=== PATIENT | male | born 2000 | race Two or more races ===

== ENCOUNTER 2024-07-15 11:47 | Emergency (ER) | payer OTHER, SELFPAY ==
[2024-07-15 11:50] VITALS: BP 113/56; PULSE 72; RESP 16; TEMP 36.9; O2SAT 95; BMI 21.1
[2024-07-15 11:51] VITALS: BMI 22.2
--- NOTE | 2024-07-15 11:58 | EDNOTE_ITS ---
ED Medical Clearance RME/HPI General Chief complaint: Medical Clearance Stated complaint: CLEARANCE, Time Seen by Provider: 07/15/24 11:54 Arrival date/time: 07/15/24 11:47 CBC showed mild medical clearance HPI patient presents to the ER in [facility] with a [place] [employer] police officer escorting him the patient has no specific complaints the officer states he has no specific issues, other than thinking the patient is high [place] . The patient denies any pain fever chills nausea vomiting vital signs are stable. Related Information Allergies Allergy/AdvReac Type Severity Reaction Status Date / Time No Known Allergies Allergy Verified 07/15/24 11:51 Review of Systems Review of Systems Narrative Review of Systems: GEN: No fever, no chills, no weight loss EYES: No discharge, no visual changes, no pain HEENT: No ear pain, no congestion, no sore throat PULM: No shortness of breath, no cough, no congestion CV: No chest pain, no dyspnea on exertion, no palpitations GI: No nausea, no vomiting, no diarrhea, no pain, no constipation : No frequency, no urgency, no dysuria MUSC/SKEL: No joint pain, no back pain SKIN: No rash PSYCH: No hallucinations, no depression HEME/LYMPH: No easy bleeding or bruising tendencies NEURO: No weakness, no headache Past Medical History Past Medical History CARDIAC: Negative Congestive Heart Failure RESPIRATORY: Negative Respiratory Disorders or Chronic Obstructive Pulmonary Disease (COPD) GENITOURINARY: Negative Renal Disease ENDOCRINE: Negative Diabetes Mellitus Type 1 or Diabetes Mellitus Type 2 OTHER HISTORY: Negative Autoimmune Disease, Anesthesia Reactions, MRSA or Cancer Family History FAMILY HISTORY: Negative Family Cardiac Disorders Surgical History SURGICAL: Negative Cardiac Surgery, Abdominal Surgery, Joint Replacement or Mastectomy Social History SMOKING STATUS: Never smoker ED Exam Narrative Physical exam: [General: Not in any acute distress Head normocephalic HEENT: Within acceptable limits Neck is supple nontender Chest equal chest rise nontender to palpation Respiratory: Clear to auscultation no wheezes crackles or rubs CV: Rate rhythm is regular no murmurs rubs or clicks Abdomen is soft nontender no masses positive bowel sounds all 4 quadrants Back: No CVA tenderness no spinous process tenderness from cervical spine thoracic and lumbar spine Skin: Intact no petechiae rash induration ulceration or crepitus Extremities: Moving all extremity against resistance cap refill less than 2 seconds neurosensory intact Neuro: Awake alert oriented x3 Glascow coma 15 no focal deficits] Course Quality Measures VTE prophylaxis Vital Signs Vital signs: Vital Signs Temperature 98.5 F 07/15/24 11:50 Pulse Rate 72 07/15/24 11:50 Respiratory Rate 16 07/15/24 11:50 Blood Pressure 113/56 L 07/15/24 11:50 Pulse Oximetry (%) 95 07/15/24 11:50 Oxygen Delivery Method Room Air 07/15/24 11:50 Medical Clearance Patient data External records reviewed:: [facility] previous records Clinical information provided by:: patient and law enforcement Social determinants that could affect healthcare access:: none Patient has the following chronic illnesses:: None How is presenting disease/condition affected by chronic disease/condition?: uneffected by Evaluation data The following diagnostics were reviewed and interpreted by me:: other (specify) Lab and/or radiology exams considered but not ordered:: None Interpretation Summary: Vital signs are stable no acute finding Medications / Prescriptions Medications or Prescriptions considered but not ordered:: None Medication administrations:: None Consultations Consultation(s) initiated? (list below): No Diagnosis Medical Clearance Differential Diagnosis: other (None) Most likely diagnosis given after review of the tests above:: Medical clearance Admission Indicated Admission indicated?: not indicated Explain why admission is indicated or not indicated:: Stable for half-way Admission Request Was there a request for admission?: No Disposition Plan Disposition Plan: Discharge Discharge Attestation Discharge Attestation: The patient and all family members were given an opportunity to ask questions and understood the discharge instructions. Discharge instructions specifically effects, indications for sooner follow up or return to the emergency department, and the expected course of current diagnosis. Patient condition: Stable Discharge Plan Plan Patient Disposition: Care Home/Court/Law Patient condition on transfer: Stable Problem List Clinical Impression: Medical clearance for incarceration Patient/Caregiver Discharge Instructions Print Language: Luxembourgish Stand Alone Forms: Work/School Release ELY/LIOR Supervising Physician RAS Supervising Physician: Robert York ENP
--- NOTE | 2024-07-15 16:24 | PD.EDMEDCL ---
ED Medical Clearance RME/HPI General Chief complaint: Medical Clearance Stated complaint: CLEARANCE, Time Seen by Provider: 07/15/24 11:54 Arrival date/time: 07/15/24 11:47 Related Information Allergies Allergy/AdvReac Type Severity Reaction Status Date / Time No Known Allergies Allergy Verified 07/15/24 11:51 Course Quality Measures VTE prophylaxis Vital Signs Vital signs: Vital Signs Temperature 98.5 F 07/15/24 11:50 Pulse Rate 72 07/15/24 11:50 Respiratory Rate 16 07/15/24 11:50 Blood Pressure 113/56 L 07/15/24 11:50 Pulse Oximetry (%) 95 07/15/24 11:50 Oxygen Delivery Method Room Air 07/15/24 11:50 Medical Clearance Patient data External records reviewed:: [facility] previous records Clinical information provided by:: law enforcement Social determinants that could affect healthcare access:: none Patient has the following chronic illnesses:: None How is presenting disease/condition affected by chronic disease/condition?: uneffected by Evaluation data The following diagnostics were reviewed and interpreted by me:: lab results and radiology exam(s) Lab and/or radiology exams considered but not ordered:: See MDM Interpretation Summary: Pain Medications / Prescriptions Medications or Prescriptions considered but not ordered:: None Medication administrations:: None Consultations Consultation(s) initiated? (list below): No Diagnosis Medical Clearance Differential Diagnosis: other (None) Most likely diagnosis given after review of the tests above:: Pain Admission Indicated Admission indicated?: not indicated Admission Request Was there a request for admission?: No Disposition Plan Disposition Plan: Discharge Discharge Attestation Discharge Attestation: The patient and all family members were given an opportunity to ask questions and understood the discharge instructions. Discharge instructions specifically effects, indications for sooner follow up or return to the emergency department, and the expected course of current diagnosis. Patient condition: Stable Discharge Plan Plan Patient Disposition: [facility]/Court/Law Patient condition on transfer: Stable Problem List Clinical Impression: Medical clearance for incarceration Patient/Caregiver Discharge Instructions Print Language: Romanian Stand Alone Forms: Work/School Release ELY/LIOR Supervising Physician RAS Supervising Physician: Robert York ENP
== END 2024-07-15 12:13 ==
PROVIDERS: Emergency Provider Family Medicine
DX: Z02.89 Encounter for other administrative examinations (principal)
CPT/HCPCS: 99281